=== PATIENT | male | born 1965 | race Caucasian/White ===

== ENCOUNTER 2016-09-06 21:44 | Emergency (ER) | payer OTHER, SELFPAY ==
[2016-09-06 23:35] VITALS: BP 158/94
--- NOTE | 2016-09-08 10:28 | ER ---
CHIEF COMPLAINT: The patient enters with a chief complaint of painful right eye. 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 Pain has gotten worse overtime, his eye has become red and watery. He denies any vision changes. PAST MEDICAL HISTORY: Negative. MEDICATIONS: He does not take any medications. ALLERGIES: NO KNOWN DRUG ALLERGIES. PHYSICAL EXAMINATION: GENERAL: A well-developed, well-nourished male. He is alert and oriented x3, in no acute distress. SKIN: Dry. No rashes. EYES: Show EOMI, PERRLA. Fluorescein eye exam showed no foreign body to be present. He did have a shallow corneal abrasion between 12 and 2 o'clock. Vision acuity was unaffected. His right eye was 20/30. His left eye was 20/20. VITAL SIGNS: Upon admission, show temperature 98.8, saturation 99% on room air, blood pressure 158/94. In the emergency room, he was given topical gentamicin ointment, Tdap shot as he is not up- to-date with tetanus and he was instructed to follow up in clinic or with his eye doctor in the morning. The patient will continue with his gentamicin t.i.d. until tube is gone, any increased pain or change of vision requires that he be reevaluated immediately. [place] /[id number]
== END 2016-09-06 23:00 | disposition home or self-care (01) ==
LOC: LB.ED 21:44
DX: S05.01XA Injury of conjunctiva and corneal abrasion without foreign body, right eye, initial encounter (principal); X58.XXXA Exposure to other specified factors, initial encounter; Z23 Encounter for immunization
CPT/HCPCS: 99282; 99283; A9270

== ENCOUNTER 2020-04-26 22:03 | Emergency (ER) | payer SELFPAY ==
[~2020-04-26 22:03] MED LIST: Ondansetron 4 MG Tab.DIS ONE; Sulfamethoxazole/Trimethoprim 800-160 MG Tab ONE
[2020-04-26] MEDS ORDERED: Sodium Chloride 0.9% 50 ML SDV FLUSH ONE (22:43)
--- NOTE | 2020-04-26 22:43 | EDM.PDOC ---
ED HPI GENERAL MEDICAL PROBLEM - General Chief Complaint: Abdominal Pain Stated Complaint: STOMACH PAIN Time Seen by Provider: 04/26/20 22:15 Source of Information: Reports: Patient History Limitations: Reports: No Limitations - History of Present Illness Onset Date: 04/26/20 Onset Time: 08:00 Duration: Hour(s):, Getting Worse (nausea vomiting midline abdominal pain) Quality: Reports: Ache, Dull Severity: Moderate Worsens with: Reports: None Lower Abdominal Pain Score (Numeric/FACES): 2 - Related Data Allergies Allergy/AdvReac Type Severity Reaction Status Date / Time No Known Allergies Allergy Verified 04/26/20 22:51 Home Meds: Home Meds NK [No Known Home Meds] 09/06/16 [History] Past Medical History - Past Health History Medical/Surgical History: Denies Medical/Surgical History - History Comment History Comment: skull fx and repair 25 years ago. LOC 24 hours. Social & Family History - Tobacco Use Tobacco Use Status *Q: Former Tobacco User ED ROS GENERAL - Review of Systems Review Of Systems: Comprehensive ROS is negative, except as noted in HPI. Constitutional: Reports: Decreased Appetite HEENT: Reports: No Symptoms Respiratory: Reports: Wheezing Cardiovascular: Reports: No Symptoms GI/Abdominal: Reports: Abdominal Pain, Vomiting Skin: Reports: Other (pale moore color) ED EXAM, GI/ABD - Physical Exam Exam: See Below Exam Limited By: No Limitations General Appearance: Alert, WD/WN, Mild Distress Ears: Normal External Exam Nose: Normal Inspection Throat/Mouth: Normal Inspection, Normal Lips, Normal Teeth Head: Atraumatic, Normocephalic Neck: Normal Inspection, Non-Tender Respiratory/Chest: Wheezing Cardiovascular: Normal Peripheral Pulses, Regular Rate, Rhythm GI/Abdominal Exam: Normal Bowel Sounds, Soft, Other (Tender midline low) (Male) Exam: Deferred Rectal (Males) Exam: Deferred Extremities: Normal Inspection Neurological: Alert, Oriented, CN II-XII Intact Psychiatric: Normal Affect, Normal Mood Skin Exam: Warm, Dry, Intact Lymphatic: No Adenopathy Course - Orders/Labs/Meds Orders: Active Orders 24 hr Category Date Time Status Abdomen Pelvis w Cont [CT] Stat Exams 04/26/20 22:33 Ordered Chest 1V Frontal [CR] Stat Exams 04/26/20 22:46 Taken AMYLASE [CHEM] Stat Lab 04/26/20 22:28 Ordered COMPREHENSIVE METABOLIC PN,CMP [CHEM] Stat Lab 04/26/20 22:28 Ordered INFLUENZA A+B AG SCREEN [RM] Stat Lab 04/26/20 22:31 Ordered INR,PT,PROTHROMBIN TIME [COAG] Stat Lab 04/26/20 22:28 Ordered LIPASE [CHEM] Stat Lab 04/26/20 22:28 Ordered Iopamidol [Isovue-300 (61%)] Med 04/26/20 22:45 Active 100 ml IV . DIRECTED Isolation [COMM] Routine Oth 04/26/20 22:31 Active Medication Orders Iopamidol (Isovue-300 (61%)) 100 ml IV . DIRECTED COUNTS INCLUDE 234 BEDS AT THE [facility] Labs: Laboratory Tests 04/26/20 04/26/20 Range/Units 22:30 22:30 WBC 11.2 H (4.0-11.0) K/uL RBC 4.75 (4.50-6.50) M/uL Hgb 14.0 (13.0-18.0) g/dL Hct 43.1 (40.0-54.0) % MCV 91 (76-96) fL MCH 29.5 (27.0-32.0) pg MCHC 32.5 (31.0-35.0) g/dL RDW 13.1 (11.0-16.0) % Plt Count 205 (150-400) K/uL MPV 9.5 (6.0-10.0) fL Neut % (Auto) 88.1 H (45.0-70.0) % Lymph % (Auto) 7.8 L (20.0-40.0) % Bullock % (Auto) 3.7 (3.0-10.0) % Eos % (Auto) 0.2 L (1.0-5.0) % Baso % (Auto) 0.2 (0.0-0.5) % Neut # (Auto) 9.88 H (2.00-7.50) K/uL Lymph # (Auto) 0.87 L (1.50-4.00) K/uL Bullock # (Auto) 0.42 (0.20-0.80) K/uL Eos # (Auto) 0.02 L (0.04-0.40) K/uL Baso # (Auto) 0.02 (0.02-0.10) K/uL SARS CoV-2 RNA Rapid [place] Negative Meds: Medications Generic Name Dose Route Start Last Admin Trade Name Freq PRN Reason Stop Dose Admin Iopamidol 100 ml 04/26/20 22:45 Isovue-300 (61%) IV . DIRECTED JOANN Discontinued Medications Generic Name Dose Route Start Last Admin Trade Name Freq PRN Reason Stop Dose Admin Ondansetron HCl 8 mg 04/26/20 22:45 04/26/20 22:45 Zofran IVPUSH 04/26/20 22:46 8 mg ONETIME ONE Administration Sodium Chloride 50 ml 04/26/20 22:43 Normal Saline FLUSH 04/26/20 22:44 ONETIME ONE Departure - Departure Time of Disposition: 00:20 Disposition: Home, Self-Care 01 Condition: Good Clinical Impression: Gastroenteritis, Asthma - Discharge Information *PRESCRIPTION DRUG MONITORING PROGRAM REVIEWED*: Not Applicable *COPY OF PRESCRIPTION DRUG MONITORING REPORT IN PATIENT OLIVIER: Not Applicable Instructions: Viral Gastroenteritis, Adult, Nausea and Vomiting, Adult, [id number] Forms: ED Department Discharge Additional Instructions: Take OTC [place] Bismuth as needed for nausea, increase fluid intake. Tylenol for fever or pain.RTC or ED for new or worsening symptoms. See PCP for inhaler if Asthma symptoms worsen. - My Orders Last 24 Hours: My Active Orders 04/26/20 22:28 AMYLASE [CHEM] Stat COMPREHENSIVE METABOLIC PN,CMP [CHEM] Stat INR,PT,PROTHROMBIN TIME [COAG] Stat LIPASE [CHEM] Stat 04/26/20 22:31 INFLUENZA A+B AG SCREEN [RM] Stat Isolation [COMM] Routine 04/26/20 22:33 Abdomen Pelvis w Cont [CT] Stat 04/26/20 22:45 Iopamidol [Isovue-300 (61%)] 100 ml IV . DIRECTED 04/26/20 22:46 Chest 1V Frontal [CR] Stat - Assessment/Plan Last 24 Hours: My Active Orders 04/26/20 22:28 AMYLASE [CHEM] Stat COMPREHENSIVE METABOLIC PN,CMP [CHEM] Stat INR,PT,PROTHROMBIN TIME [COAG] Stat LIPASE [CHEM] Stat 04/26/20 22:31 INFLUENZA A+B AG SCREEN [RM] Stat Isolation [COMM] Routine 04/26/20 22:33 Abdomen Pelvis w Cont [CT] Stat 04/26/20 22:45 Iopamidol [Isovue-300 (61%)] 100 ml IV . DIRECTED 04/26/20 22:46 Chest 1V Frontal [CR] Stat
[2020-04-26] MEDS ORDERED: Iopamidol 612 MG/ML 100 ML Bottle IV SCH (22:45)
[2020-04-26] MEDS ORDERED: Ondansetron 4 MG/2 ML SDV IVPUSH ONE (22:45)
[2020-04-26] MEDS ORDERED: Lactated Ringers 500 ML IV ONE (23:39)
--- NOTE | 2020-04-27 09:01 | CR ---
Date of Service: 04/26/20 Clinical Data: wheezing AP CHEST: Comparison is made to a prior exam dated 04/10/20. The heart size is normal. The lungs are clear. No pneumothorax. No pleural effusions. No evidence of acute intrathoracic disease. [id number] [facility]
--- NOTE | 2020-04-27 09:12 | CT ---
Date of Service: 04/26/20 Clinical Data: vomiting midline abdominal pain ENHANCED ABDOMEN AND PELVIC CT: Multislice acquisition through the abdomen and pelvis with IV, but without oral contrast was performed. No priors. The lung bases are clear. The heart size is normal. There is diffuse fatty infiltration of the liver. No focal hepatic lesions. The gallbladder appears normal. No biliary duct dilatation. The spleen appears normal. The pancreas appears normal. The right and left adrenals appear normal. The right and left kidneys appear normal and enhance symmetrically. No hydronephrosis or hydroureter. Bladder is partially fluid-filled. It appears normal. There is a moderate amount of fluid and gas noted within the stomach. There is mural thickening throughout the stomach. Gastritis should be considered. There are multiple loops of small bowel within the mid and lower abdomen and pelvis with mural thickening. This may be related to nondistention. Enteritis should be considered. There is a moderate amount of stool noted in the ascending colon. There is mural thickening throughout the transverse and descending colon. Colitis should be considered. No definite evidence for obstruction or ileus. No free air. No free fluid. No adenopathy. No aortic aneurysm or dissection. There is a small fat containing umbilical hernia. There is a moderate-sized right hydrocele. [id number] [facility]
== END 2020-04-27 00:15 | disposition home or self-care (01) ==
LOC: LB.ED 22:03
DX: K52.9 Noninfective gastroenteritis and colitis, unspecified (principal); J45.909 Unspecified asthma, uncomplicated; Z87.891 Personal history of nicotine dependence; Z20.822 Contact with and (suspected) exposure to COVID-19
CPT/HCPCS: 36415; 71045; 74177; 80053; 82150; 83690; 85025; 85610; 87804; 87804-59; 96374; 99285-25; A9270-GY; J2405; J7120; U0002

== ENCOUNTER 2021-11-10 23:15 | Observation (INO) | payer SELFPAY ==
[2021-11-10] MEDS: Albuterol/Ipratropium 3.0-0.5 MG/3 ML Neb Soln NEB SCH ×2 (23:30→23:45)
[2021-11-10] MEDS ORDERED: Sodium Chloride 0.9% 10 ML Syringe FLUSH PRN (23:43)
[2021-11-10] MEDS ORDERED: methylPREDNISolone Sodium Succinate 125 MG/2 ML SDV IVPUSH ONE (23:45)
[2021-11-11] MEDS: Albuterol/Ipratropium 3.0-0.5 MG/3 ML Neb Soln NEB SCH ×4 (00:50→09:54)
[2021-11-11] MEDS ORDERED: Albuterol/Ipratropium 3.0-0.5 MG/3 ML Neb Soln ONE ×2 (00:59→01:48)
[2021-11-11] MEDS ORDERED: Sodium Chloride 0.9% 1,000 ML IV SCH ×2 (01:00→01:30)
[2021-11-11] MEDS ORDERED: Acetaminophen 325 MG Tab PO PRN (01:16)
[2021-11-11] MEDS ORDERED: Azithromycin 500 MG Tab PO ONE (01:18)
== END 2021-11-11 09:40 | disposition home or self-care (01) ==
LOC: LB.ED 23:15 → LB.MS 11-11 01:16 → UNDOADMOB 11-11 02:32 → LB.MS 11-11 02:32
PROVIDERS: ADMIT Physician Assistant; ATTEND Physician Assistant
DX: J44.1 Chronic obstructive pulmonary disease with (acute) exacerbation (principal); N17.9 Acute kidney failure, unspecified; Z87.891 Personal history of nicotine dependence; Z94.9 Transplanted organ and tissue status, unspecified; Z20.822 Contact with and (suspected) exposure to COVID-19
CPT/HCPCS: 36415; 71046; 80048; 81003; 84484; 85025; 85379; 93005; 93010; 96360; 96361; 99217; 99219; 99285-25; A9270-GY; J2930; J7030; J7620; U0002

== ENCOUNTER 2023-12-26 14:34 | Emergency (ER) | payer MEDICAID, OTHER ==
[2023-12-26] MEDS: Albuterol/Ipratropium 3.0-0.5 MG/3 ML Neb Soln NEB ONE ×2 (15:06→15:22)
[2023-12-26 15:23] LABS: BASOPHILS ABSOLUTE AUTO 0.03 K/uL (0.02-0.10); BASOPHILS PERCENT AUTO 0.3 % (0.0-0.5); EOSINOPHILS PERCENT AUTO 4.4 % (1.0-5.0); HEMATOCRIT 43.8 % (40.0-54.0); HEMOGLOBIN 14.8 g/dL (13.0-18.0); LYMPHOCYTES ABSOLUTE AUTO 1.07 K/uL (1.50-4.00); LYMPHOCYTES PERCENT AUTO 9.5 % (20.0-40.0); MEAN CORPUSCULAR HEMOGLOBIN 30.5 pg (27.0-32.0); MEAN CORPUSCULAR HGB CONC 33.8 g/dL (31.0-35.0); MEAN CORPUSCULAR VOLUME 90 fL (76-96); MEAN PLATELET VOLUME 10.1 fL (6.0-10.0); MONOCYTES ABSOLUTE AUTO 1.04 K/uL (0.20-0.80); MONOCYTES PERCENT AUTO 9.2 % (3.0-10.0); NEUTROPHILS ABSOLUTE AUTO 8.68 K/uL (2.00-7.50); NEUTROPHILS PERCENT AUTO 76.6 % (45.0-70.0); PLATELET COUNT,PLT 187 K/uL (150-400); RED BLOOD CELL COUNT 4.86 M/uL (4.50-6.50); RED CELL DISTRIBUTION WIDTH 13.4 % (11.0-16.0); WHITE BLOOD CELL COUNT,WBC 11.3 K/uL (4.0-11.0)
[2023-12-26] MEDS: methylPREDNISolone Sodium Succinate 125 MG/2 ML SDV IVPUSH ONE (15:23)
[2023-12-26] MEDS: Ondansetron 4 MG/2 ML SDV IVPUSH ONE ×2 (15:23→16:09)
[2023-12-26 15:44] LABS: ALBUMIN 3.4 g/dL (3.4-5.0); ANION GAP 11.3 mmol/L (5.0-15.0); BILIRUBIN TOTAL 0.6 mg/dL (0.0-1.0); BUN/CREATININE RATIO 16.2 (6-25); CALCIUM 8.9 mg/dL (8.5-10.1); CARBON DIOXIDE,CO2 25.6 mmol/L (21.0-32.0); CREATININE 1.05 mg/dL (0.70-1.30); EST CRCL DRUG DOSING (CG) 68.88 mL/min; POTASSIUM,K 3.9 mmol/L (3.5-5.1); PROTEIN TOTAL,TP 6.8 g/dL (6.4-8.2)
[2023-12-26 16:24] LABS: INFLUENZA A NAA NEGATIVE (NEGATIVE); INFLUENZA B NAA NEGATIVE (NEGATIVE); RESPIRATORY SYNCYTIAL VIR NAA NEGATIVE (NEGATIVE)
[2023-12-26 16:25] LABS: CORONAVIRUS COVID-19 NAA NEGATIVE (NEGATIVE)
== END 2023-12-26 16:26 | disposition home or self-care (01) ==
LOC: LB.ED 14:34
DX: J44.1 Chronic obstructive pulmonary disease with (acute) exacerbation (principal)
CPT/HCPCS: 0241U; 36415; 71045; 80053; 83880; 84484; 85025; 94640; 96374; 96375; 99285; J2405; J2919; J7620